=== PATIENT | male | born 1950 | race Caucasian/White ===

== ENCOUNTER 2018-11-04 12:29 | Inpatient (IN) | payer OTHER ==
[~2018-11-04] VITALS: Ht 182.9 cm; Wt 90.7 kg
--- NOTE | ~2018-11-04 | EKG ---
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
[2018-11-07] MEDS ORDERED: METHADONE HCL5 MG PO (10:05)
[2018-11-07] MEDS ORDERED: NORCO 7.5-3251 EACH PO (10:06)
[2018-11-07] MEDS ORDERED: VENTOLIN HFA 1818 GM INH (10:07)
[2018-11-12 12:36] LABS: HEMATOCRIT 38.9 % (42.0-52.0); HEMOGLOBIN 12.7 gm/dL (14.0-18.0); MCH 27.1 pg (26.0-34.0); MCHC 32.7 g/dL (28.0-37.0); MCV 82.9 fL (80.0-100.0); RBC 4.7 mil/uL (4.50-6.00); RDW 16.2 % (10.5-14.5); WBC 7.6 thou/uL (4.0-11.0)
[2018-11-12 12:44] LABS: ALBUMIN 3.8 g/dL (3.4-5.0); CALCIUM 9.2 mg/dL (8.5-10.1); POTASSIUM 4.4 mmol/L (3.5-5.1)
[2018-11-12 12:47] LABS: PROTIME 10.7 Seconds (9.3-11.4)
[2018-11-12 13:04] LABS: URINE BILIRUBIN NEGATIVE (Negative); URINE BLOOD TRACE (Negative); URINE CLARITY CLEAR; URINE COLOR YELLOW; URINE GLUCOSE-RANDOM* NEGATIVE (Negative); URINE KETONES NEGATIVE (Negative); URINE LEUKOCYTES-REFLEX NEGATIVE (Negative); URINE NITRITE-REFLEX NEGATIVE (Negative); URINE PROTEIN (DIPSTICK) NEGATIVE (Negative); URINE SPECIFIC GRAVITY <= 1.005 (1.005-1.035); URINE UROBILINOGEN 0.2 E.U./dl (0.2-1.0)
--- NOTE | 2018-11-13 04:59 | EKG ---
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
[2018-11-19 14:45] VITALS: BP 137/74
[2018-11-19 18:22] VITALS: BP 114/79
[2018-11-19 19:10] VITALS: BP 121/80
--- NOTE | 2018-11-19 19:50 | NUR ---
ASSUMED CARE AT 1800, FLUDIS STARTED, IV PAIN MED GIVEN. DRESSING TO LEFT HIP C/D/I. REPORT GIVEN TO NIGHT NURSE. WILL CONTINUE TO ASSESS AND ASSIST WITH ADLs NEEDED.
--- NOTE | 2018-11-20 01:29 | NUR ---
Assumed care of pt at 1900. Dressing on left hip dry and intact. Pt refused silvia hose on left leg. Prn pain meds administered and provided relief. Will continue to monitor and assist with needs.
[2018-11-20 05:14] VITALS: BP 127/99
[2018-11-20 05:50] LABS: HEMATOCRIT 30.6 % (42.0-52.0); HEMOGLOBIN 10.2 gm/dL (14.0-18.0); MCH 27.6 pg (26.0-34.0); MCHC 33.4 g/dL (28.0-37.0); MCV 82.8 fL (80.0-100.0); RBC 3.69 mil/uL (4.50-6.00); RDW 15.7 % (10.5-14.5)
[2018-11-20 07:55] VITALS: BP 90/60
--- NOTE | 2018-11-20 09:15 | O ---
[facility] [place] [address] OPERATIVE REPORT Name: LESLEY LINCOLN Jb Room #: 418-P [facility] IN M.R.#: [id number] Admission: 11/19/18 Attend Phys: Ryan Espinoza MD Discharge: Date of : 54 Report #: [id number] THIS REPORT FOR: //name// CC: Rylan Espinoza DATE OF SERVICE: 11/19/2018 PREOPERATIVE DIAGNOSIS: Left hip osteoarthritis. POSTOPERATIVE DIAGNOSIS: Left hip osteoarthritis. PROCEDURE: Left total hip arthroplasty. SURGEON: Ryan Espinoza MD. HYDRAULIC BLOCKER: Yaneth Rizvi PA-C. ANESTHESIA: General endotracheal. INDICATION FOR HYDRAULIC BLOCKER: Throughout the case, extensive retraction and manipulation of the hip including dislocation and reduction was required. This was afforded to me by my field research assistant. IMPLANTS: [employer] size 16 high offset Synergy press fit stem, a size 56 R3 acetabular cup with 1 acetabular screw and a size 40+4 cobalt chrome head. ESTIMATED BLOOD LOSS: 200 mL. COMPLICATIONS: None. SPECIMENS: Cystic fluid/tissue was sent for permanent pathology. CONDITION UPON LEAVING THE OPERATING ROOM: Stable. INDICATIONS FOR PROCEDURE: The patient is a 68-year-old gentleman with severe left hip osteoarthritis. He had failed conservative measures for this and after discussion with him, he elected for left total hip arthroplasty. DESCRIPTION OF PROCEDURE: Risks, benefits, alternatives and complications were discussed in detail with the patient including but not limited to risk of anesthesia, risk of damage to nerves, arteries, blood vessels, risk for infection, bleeding, risk for leg length discrepancy, instability and need for reoperation. Informed consent was obtained from the patient. The left hip was appropriately marked in the preoperative holding area. IV Ancef was given for preoperative antibiotics. He was brought to the operating room and placed in [address] [address] OPERATIVE REPORT Name: LESLEY LINCOLN Room #: 418-P [facility] IN M.R.#: [id number] Admission: 11/19/18 Attend Phys: Ryan Espinoza MD Discharge: Date of : 54 Report #: [id number] the supine position on the operating room table. General endotracheal anesthesia was induced without complication. He was then placed in the right lateral decubitus position with the left hip uppermost. The left hip and lower extremity were prepped and draped in normal sterile fashion. Timeout was performed properly identifying the patient and procedure as well as the instrumentation and implants. All in the operating room were in agreement. Standard posterior approach to the hip was made with 10 blade through the skin. Dissection was taken down to the fascia with Bovie cautery and fascia was cleaned off with Soriano elevator. Fresh 10 blade was used to make a fascial incision. This was taken proximally and distally with curved Grossman scissor. Charnley retractor was placed. Trochanteric bursa was taken down with Bovie cautery. Piriformis tendon was identified, tagged and taken down with Bovie. Short external rotators were also taken down with Bovie cautery. Capsulotomy was made and capsule ends were tagged for later repair. Hip was dislocated and there was extensive osteoarthritic change of the femoral head. Femoral neck cut was made 1 cm proximal to lesser trochanter based on preoperative templating and femoral head removed. Deep acetabular retractors were placed. Upon placing the superior acetabular retractor, there was some thick gelatinous whitish fluid that appeared to be similar to fluid from a sebaceous cyst that was sent for permanent pathology. The labrum was removed sharply. Pulvinar was removed with Bovie cautery. Acetabulum was sequentially reamed up to a size 56 at which point, there was excellent bleeding cancellous bone. This was then trialed with a size 55 trial cup and found to have a good fit. A final size 56 R3 acetabular cup then placed and seated. One acetabular screw was placed for backup fixation. Polyethylene liner for a 40 head was placed. Attention was then turned to the femur. This was reamed and broached up to a size 16, at which point, the size 16 broach was stable. This trialed with a high offset neck and a 40+0 head. Hip was reduced, taken through range of motion and found to be stable, found to be somewhat short on the left compared to the right. It was felt that could be made up for with final implant. Hip was dislocated. Broach was removed and final size 16 high offset Synergy press fit stem was placed. This was then trialed with a 40+4 head. Hip was reduced, taken through range of motion, found to be stable, found to have equal leg length. The hip was dislocated one last time and a final size 40+4 cobalt chrome head was placed. Hip was reduced, taken through range of motion, found to be stable, found to have equal leg lengths. Hip was thoroughly irrigated with normal saline. A periarticular injection consisting of morphine, ropivacaine, epinephrine and Toradol was placed around the hip joint capsule. A gram of vancomycin was placed deep in the joint. The piriformis and capsule repaired with 0 FiberWire. Fascia was closed with 0 Vicryl, skin was closed with 2-0 Vicryl and 3-0 Monocryl. Dermabond and a JANY dressing was applied. The patient tolerated [address] [address] OPERATIVE REPORT Name: LESLEY LINCOLN Room #: 418-P [facility] IN M.R.#: [id number] Admission: 11/19/18 Attend Phys: Ryan Espinoza MD Discharge: Date of : 54 Report #: [id number] this procedure well and went to recovery room under care of Anesthesia postoperatively. <ELECTRONICALLY SIGNED> By: Ryan Espinoza MD 11/20/18 0915 1644 1708 Ryan Espinoza MD /nt
[2018-11-20] MEDS ORDERED: TRI-BUFFERED A325 M1 PO (09:50)
[2018-11-20] MEDS ORDERED: NEURONTIN 300300 M1 PO (09:50)
[2018-11-20 11:33] VITALS: BP 90/60
--- NOTE | 2018-11-20 13:26 | NUR ---
INITIAL ASSESSMENT: Pt evaluated for d/c planning needs. Reviewed chart and spoke with nurse and pt. Pt is alert and oriented. Pt lives in house with spouse and was independent with ADL's prior to admission to the hospital. Pt is employed and plans on retiring in 38 days. Pt has walker and cane at home, and has made arrangements for outpatient PT at [facility]. Pt plans on returning home on d/c from hospital. Will remain available to assist as needed.
--- NOTE | 2018-11-20 15:07 | NUR ---
Assumed pt care at 7am.Assessment completed.vss.Pt up in chair for all meals. Good appetite noted.Medicated pt with pain med for left hip pain with complete relief.Pt voided over 600ml clear yellow urine.Later this am,Yaneth MILLER here,dc order noted.Pt up in hallways and was instructed on walking on staircases.Dc summary completed compiled and reviewed with pt.At 1520,pt dc home with in wc in stbale condition.
--- NOTE | 2018-11-24 16:06 | PATH ---
[facility] [address] [place] [address] PATHOLOGY RPT PROCEDURE Name: LESLEY WEINER Jb Room #: 418-P [facility] IN M.R.#: [id number] Admission: 11/19/18 Date of : 54 Discharge: 11/20/18 Report #: [id number] Path Case #: [id number] [facility] Accession Number: [id number] . 01 Material submitted: . LEFT HIP JOINT CYST . 01 Clinical history: . Left hip OA . 02 Diagnosis: Left hip joint cyst, excision: - Cystic space lined by dense fibrous tissue associated with myxoid degeneration and fibrinoid degeneration, compatible with a synovial cyst (history of osteoarthritis). (IUV:affirmative action specialist; 11/24/2018) MBR/11/24/2018 . 02 Electronically signed: . Milli Sullivan MD, Pathologist NPI- [id number] . 01 Gross description: . Received in formalin labeled "Lesley Weiner, left hip joint cyst," are multiple fragments of pale burciaga to dark brown possible capsular tissue measuring 3.7 x 1.9 x 0.9 cm in aggregate dimensions. Serial sectioning reveals firm, pale burciaga cut surfaces. Aurist tissue is submitted in cassette A1. ([facility]; 11/21/2018) XDC/XDC . 02 Pathologist provided ICD-10: M71.352 . 02 CPT . 416995 Specimen Comment: A courtesy copy of this report has been sent to Specimen Comment: [phone], . Specimen Comment: Report sent to / DR VIEIRA Performed at: [address], [place], [place] [id number] MD Dimitri Cee MD Phone: [phone] Performed at: [address], [place] [id number] MD Milli Sullivan MD Phone: [phone]
== END 2018-11-20 16:41 | disposition home or self-care (01) | DRG 470 ==
LOC: TBA 12:29 → PRE 11-19 05:35 → TBA 11-19 06:16 → 4E 11-19 06:16 → TBA 11-19 10:49 → PRE 11-19 10:50 → TBA 11-19 12:34 → 4E 11-19 18:15
PROVIDERS: ADMIT Orthopaedic Surgery
PROC: 0SRB01A Replacement of Left Hip Joint with Metal Synthetic Substitute, Uncemented, Open Approach (ICD-10-PCS; principal; 2018-11-19)
DX: M16.12 Unilateral primary osteoarthritis, left hip (principal); Z79.82 Long term (current) use of aspirin; Z79.899 Other long term (current) drug therapy; M43.26 Fusion of spine, lumbar region; M51.36 Other intervertebral disc degeneration, lumbar region
CPT/HCPCS: 10783; 50010; 50101; 50382; 50414; 53000; 53078; 53367; 54118; 56524; 56527; 56528; 56530; 57095; 57103; 62110; 62900; 70005